=== PATIENT | female | born 1975 | race Caucasian/White ===

== ENCOUNTER 2017-06-28 10:04 | Inpatient (IN) ==
[~2017-06-28 10:04] MED LIST: DIAZEPAM 5 MG TABLET PO ONE; SODIUM CHLORIDE 0.45% 1,000 ML IV SCH
[2017-06-28] MEDS ORDERED: DIAZEPAM 5 MG TABLET ONE (11:14)
[2017-06-28 11:20] LABS: Basophils % 0.5 % (0.0-0.8); Eosinophils # 0.3 10*3/uL (0.0-0.87); Eosinophils % 3.4 % (0.00-10.9); Hematocrit 39.8 VOL% (35.7-47.0); Hemoglobin 13.4 GM/DL (12.0-16.0); Immature Granulocytes % 0.4 %; Immature Granulocytes Absolute 0.03 #; Lymphocytes # 2.5 10*3/uL (1.4-4.0); Lymphocytes % 31.1 % (21.3-54.2); Mean Corpuscular HGB Conc 33.7 GM/DL (32-36); Mean Corpuscular Hemoglobin 34 PG (27-34); Mean Corpuscular Volume 102.3 FL (87-102); Mean Platelet Volume 10.1 FL (9.6-12.0); Monocytes # 0.6 10*3/uL (0.11-0.8); Monocytes % 7.5 % (1.7-12.7); Neutrophils # 4.7 10*3/uL (1.4-7.4); Neutrophils % 57.1 % (38.7-73.9); Platelet Count 251 T/CUMM (130-400); Red Blood Count 3.89 MC/CUMM (3.8-5.5); Red Cell Distribution Width 13.9 % (9.3-17.3); White Blood Count 8.2 T/CUMM (4-12)
[2017-06-28 11:29] LABS: INR 1.1; PT Patient Result 11.3 SECS
[2017-06-28 11:53] LABS: Osmolality,Calculated 277.4 MOS/KG (273-304); Potassium 4.4 MMOL/L (3.5-5.1)
[2017-06-28] MEDS ORDERED: MIDAZOLAM 2 MG/2 ML VIAL IV ONE (14:00)
[2017-06-28] MEDS ORDERED: fentaNYL 100 MCG/2 ML VIAL IV ONE (14:00)
[2017-06-28] MEDS ORDERED: fentaNYL 100 MCG/2 ML VIAL ONE (14:22)
[2017-06-28] MEDS ORDERED: MIDAZOLAM 2 MG/2 ML VIAL ONE (14:22)
[2017-06-28] MEDS ORDERED: ONDANSETRON 4 MG/2 ML VIAL IV PRN (14:44)
[2017-06-28] MEDS ORDERED: HEPARIN DRIP 0 UNITS/0 ML PREMIX IV ONE (14:58)
[2017-06-28] MEDS ORDERED: HEPARIN DRIP 25,000 UNITS/500 ML PREMIX IV SCH ×2 (15:00→15:52)
[2017-06-28] MEDS ORDERED: ALTEPLASE 24 MG in SODIUM CHLORIDE 0.9% 480 ML IV SCH (15:00)
[2017-06-28] MEDS ORDERED: SODIUM CHLORIDE 0.9% 1,000 ML IV SCH ×2 (15:00→23:30)
[2017-06-28] MEDS ORDERED: CYCLOBENZAPRINE 10 MG TABLET PO PRN (16:16)
[2017-06-28] MEDS: NICOTINE 21 MG/24 HR PATCH TRANSDERM SCH (16:45)
[2017-06-29 06:44] LABS: Basophils # 0.1 10*3/uL (0.0-0.2); Basophils % 0.7 % (0.0-0.8); Eosinophils # 0.3 10*3/uL (0.0-0.87); Eosinophils % 4.4 % (0.00-10.9); Hematocrit 38.3 VOL% (35.7-47.0); Hemoglobin 13.1 GM/DL (12.0-16.0); Immature Granulocytes % 0.1 %; Immature Granulocytes Absolute 0.01 #; Lymphocytes # 3.9 10*3/uL (1.4-4.0); Lymphocytes % 51.1 % (21.3-54.2); Mean Corpuscular HGB Conc 34.2 GM/DL (32-36); Mean Corpuscular Hemoglobin 35 PG (27-34); Mean Corpuscular Volume 100.8 FL (87-102); Mean Platelet Volume 10.8 FL (9.6-12.0); Monocytes # 0.7 10*3/uL (0.11-0.8); Neutrophils # 2.6 10*3/uL (1.4-7.4); Neutrophils % 34.7 % (38.7-73.9); Platelet Count 249 T/CUMM (130-400); Red Cell Distribution Width 13.8 % (9.3-17.3); White Blood Count 7.5 T/CUMM (4-12)
[2017-06-29 07:24] LABS: Eosinophils 2 % (0-10); Lymphocytes 47 % (20-55); Segmented Neutrophils 39 % (50-85); Total Cells Counted 100
[2017-06-29 07:25] LABS: Platelet Estimate Adequate
[2017-06-29] MEDS ORDERED: HEPARIN 5,000 UNIT/1 ML VIAL ONE (08:42)
[2017-06-29] MEDS ORDERED: ATOMOXETINE 80 MG PO SCH (09:00)
[2017-06-29] MEDS ORDERED: RIVAROXABAN 15 MG TABLET PO SCH (09:30)
[2017-06-29] MEDS: NICOTINE 21 MG/24 HR PATCH TRANSDERM SCH (09:43)
[2017-06-29] MEDS ORDERED: DIAZEPAM 5 MG TABLET PO ONE (10:00)
[2017-06-29 12:19] VITALS: BP 121/88
== END 2017-06-29 13:25 | disposition home or self-care (01) | DRG 271 ==
LOC: N.RAD 10:04 → N.SDSINP 10:38 → N.CC 15:44
PROVIDERS: ADMIT Internal Medicine; ATTEND Internal Medicine
PROC: IRURORE (2017-06-29 07:45)